=== PATIENT | female | born 1990 | race Caucasian/White ===

== ENCOUNTER 2017-11-30 10:34 | Emergency (ER) | payer SELFPAY ==
[2017-11-30 11:19] VITALS: BP 131/90; PULSE 111; TEMP 98.6; BMI 24.7
[2017-11-30] MEDS ORDERED: IBUPROFEN 400 MG TABLET (FP) PO ONE ×2 (11:55→12:03)
--- NOTE | 2017-11-30 11:55 | PDOC ---
History of Present Illness - General Chief Complaint: Eye Problem Stated Complaint: EYE PAIN Time Seen by Provider: 11/30/17 11:44 History Source: Patient - History of Present Illness Timing/Duration: other (yesterday) Past History - Past Medical History Allergies/Adverse Reactions: Allergies Allergy/AdvReac Type Severity Reaction Status Date / Time No Known Allergies Allergy Verified 11/30/17 11:05 Home Medications: Ambulatory Orders Erythromycin 0.5% Eye Ointment [Erythromycin 0.5% Eye Ointment -] 1 applic OD QID #1 tube 11/30/17 - Suicide/Smoking/Psychosocial Hx Smoking History: Never smoked Hx Alcohol Use: No Drug/Substance Use Hx: No Review of Systems - Review of Systems HEENTM: Yes: Eye Pain, Tearing. No: Blurred Vision *Physical Exam - Vital Signs Last Vital Signs Temp Pulse Resp BP Pulse Ox 98.6 F 111 H 16 131/90 99 11/30/17 11:06 11/30/17 11:06 11/30/17 11:06 11/30/17 11:06 11/30/17 11:06 - Physical Exam General Appearance: Yes: Appropriately Dressed, Mild Distress HEENT: positive: Normal Voice, Other (no gross fb unlid R lid, ~3mm uptake to R cornea in the 7 o' clock position, possible smaller uptake to mid cornea) Respiratory/Chest: negative: Respiratory Distress Integumentary: positive: Dry, Warm Neurologic: positive: Fully Oriented, Alert, Normal Mood/Affect Medical Decision Making - Medical Decision Making 11/30/17 12:44 27-year-old female, no significant history, here with right eye pain with photophobia and tearing. Patient states yesterday while removing artificial finger nail, a piece of acrylic flew into right eye. Denies any FB sensation or visual changes at this time. No contact lens use. See exam Corneal abrasion Tetanus UTD -dc w/ pain control and abx ointment *DC/Admit/Observation/Transfer Diagnosis at time of Disposition: Corneal abrasion Qualifiers: Encounter type: initial encounter Laterality: right Qualified Code(s): S05.01XA - Injury of conjunctiva and corneal abrasion without foreign body, right eye, initial encounter - Discharge Dispostion Disposition: HOME - Prescriptions Prescriptions: Erythromycin 0.5% Eye Ointment [Erythromycin 0.5% Eye Ointment -] 1 applic OD QID #1 tube - Referrals Referrals: ON STAFF,NOT [Primary Care Provider] - - Patient Instructions Printed Discharge Instructions: Corneal Abrasion Additional Instructions: Apply antibiotics ointment as directed Take motrin as needed for pain - Post Discharge Activity
== END 2017-11-30 12:19 | disposition home or self-care (01) ==
LOC: JERFT 10:34 → JER 10:34 → JERFT 12:19
DX: S05.01XA Injury of conjunctiva and corneal abrasion without foreign body, right eye, initial encounter (principal); W22.8XXA Striking against or struck by other objects, initial encounter; Y93.89 Activity, other specified; Y92.89 Other specified places as the place of occurrence of the external cause; Y99.8 Other external cause status
CPT/HCPCS: 99281-25

== ENCOUNTER 2022-01-10 16:59 | Emergency (ER) | payer BC ==
[2022-01-10 17:19] VITALS: RESP 18; BMI 29.1
[2022-01-10 17:24] VITALS: BP 132/96; PULSE 74; TEMP 99.1
== END 2022-01-10 17:44 | disposition home or self-care (01) ==
LOC: FER 16:59
DX: L42 Pityriasis rosea (principal)
CPT/HCPCS: 99281-25